=== PATIENT | female | born 1965 | race Caucasian/White ===

== ENCOUNTER 2017-05-12 20:58 | Emergency (ER) | payer OTHER ==
[2017-05-12 23:54] VITALS: BP 96/68
== END 2017-05-13 00:45 | disposition home or self-care (01) ==
LOC: ED 20:58
DX: M54.5 Low back pain (principal)
CPT/HCPCS: J1885; J3010

== ENCOUNTER 2017-12-12 23:16 | Emergency (ER) | payer OTHER ==
[~2017-12-12] VITALS: Ht 157.5 cm; Wt 85.0 kg
[2017-12-12 23:20] VITALS: Ht 157.5 cm; Wt 85.0 kg
[2017-12-13 01:00] VITALS: BP 120/84
== END 2017-12-13 01:29 | disposition home or self-care (01) ==
LOC: ED 23:16
DX: L03.116 Cellulitis of left lower limb (principal)

== ENCOUNTER 2018-07-09 10:27 | Emergency (ER) | payer OTHER ==
[~2018-07-09] VITALS: Ht 170.2 cm; Wt 81.6 kg
[2018-07-09 10:54] VITALS: Ht 170.2 cm; Wt 81.6 kg
[2018-07-09 11:06] LABS: BASOPHIL % 0.4 % (0-2); PLATELET COUNT 304 x10^3mcL (130-400)
[2018-07-09 11:10] LABS: RED CELL DISTRIBUTION WIDTH 19.3 % (11.5-14.5)
[2018-07-09 11:15] LABS: CALCIUM 8.5 mg/dL (8.5-10.1); CARBON DIOXIDE 26.7 mmol/L (21-32); CHLORIDE SERUM 113 mmol/L (98-107); CREATININE SERUM 0.7 mg/dL (0.6-1.0); GFR1 > 60 mL/min; GLUCOSE SERUM 92 mg/dL (74-106); POTASSIUM SERUM 3.9 mmol/L (3.5-5.1); SODIUM SERUM 150 mmol/L (136-145)
[2018-07-09 11:19] LABS: ALBUMIN 3.6 g/dL (3.4-5.0); ALKALINE PHOSPHATASE 141 U/L (46-116); ALT/SGPT 26 U/L (14-59); AST/SGOT 31 U/L (15-37); BILIRUBIN TOTAL 0.33 mg/dL (0.20-1.00); TOTAL PROTEIN, SERUM 7.7 g/dL (6.4-8.2)
[2018-07-09 13:09] LABS: AMPHETAMINE QUAL UR NONE DETECTED (See below)
[2018-07-10 11:59] VITALS: BP 121/77
== END 2018-07-09 14:24 | disposition home or self-care (01) ==
LOC: ED 10:27
PROVIDERS: Emergency Medicine
DX: R45.851 Suicidal ideations (principal); F41.8 Other specified anxiety disorders; F10.129 Alcohol abuse with intoxication, unspecified
CPT/HCPCS: G0480; J2060; J3411; J3490; J7030